=== PATIENT | male | born 1975 | race Hispanic/Latino ===

== ENCOUNTER 2018-04-01 21:17 | Observation (INO) | payer OTHER, SELFPAY ==
[2018-04-01 21:40] LABS: #Eosinphils 0.1 thou/uL (0.0-0.7); #Lymphocytes 1.8 thou/uL (1.20-3.40); #Monocytes 0.8 thou/uL (0.11-0.59); #Neutrophils 8.1 thou/uL (1.40-6.50); %Basophils 0.4 % (0.0-1.0); %Eosinophils 0.9 % (0.0-10.0); %Lymphocytes 16.9 % (21.0-51.0); %Monocytes 7.1 % (0.0-10.0); %Neutrophils 74.7 % (42.0-75.0); Hemoglobin 17.7 g/dL (14.0-18.0); Mean Corpuscular HGB CONC 33.3 g/dL (32.0-36.0); Mean Corpuscular Hemoglobin 30.7 pg (27.0-31.0); Mean Corpuscular Volume 92.1 fL (78.0-98.0); Mean Platelet Volume 8.6 fL (7.4-10.4); Platelet Count 311 thou/uL (130-400); RBC Distribution Width 11.8 % (11.5-14.5); Red Blood Cell (RBC) Count 5.76 mill/uL (4.70-6.10); White Blood Cell (WBC) Count 10.8 thou/uL (4.8-10.8)
--- NOTE | 2018-04-01 21:51 | RAD ---
ONE VIEW CHEST: 04/01/18 HISTORY: Pain. COMPARISON: None. FINDINGS: Normal cardiac silhouette. Pulmonary vessels and hilum are normal. Costophrenic angles are clear. No consolidation or mass. No pneumothorax or osseous abnormalities. IMPRESSION: No acute cardiopulmonary process. POS: [facility]
[2018-04-01 22:10] LABS: CKMB 2.1 ng/mL (0-6.6)
[2018-04-01 22:29] LABS: Troponin I Less than 0.010 ng/mL (< 0.028)
[2018-04-01 22:43] LABS: Albumin 4.1 g/dL (3.5-5.0)
[2018-04-01 22:44] LABS: Calcium 9.3 mg/dL (7.8-10.44); Chloride 106 mmol/L (98-107); Potassium 3.8 mmol/L (3.5-5.1); Sodium 136 mmol/L (136-145)
[2018-04-01 22:45] LABS: Globulin 4.3 g/dL (2.4-3.5); Glucose 153 mg/dL (70-105); Protein, Total 8.4 g/dL (6.0-8.3)
[2018-04-01 22:46] LABS: Anion Gap 17 mmol/L (10-20); Carbon Dioxide 17 mmol/L (22-29)
[2018-04-01 22:47] LABS: Bilirubin, Total 0.5 mg/dL (0.2-1.2)
[2018-04-01 22:48] LABS: Alkaline Phosphatase 85 U/L (40-150); Calc. Creatinine Clearance 0 mL/min (70-130); Estimated GFR-MDRD Greater than 90
[2018-04-01 22:49] LABS: BUN (Urea Nitrogen) 10 mg/dL (8.9-20.6)
[2018-04-01 22:50] LABS: AST (SGOT) 21 U/L (5-34)
[2018-04-01 22:51] LABS: ALT (SGPT) 23 U/L (8-55); CK (CPK) 121 U/L (30-200); Lipase 20 U/L (8-78)
--- NOTE | 2018-04-01 23:25 | ULT ---
GALLBLADDER ULTRASOUND: 04/01/18 HISTORY: Three days of epigastric pain. COMPARISON: None. TECHNIQUE: Utilizing multihertz transducer, sonographic imaging of the right upper quadrant is performed in the longitudinal and transverse plane. FINDINGS: The pancreas is obscured by bowel gas. There is heterogeneous echotexture of the hepatic parenchyma which may be due to hepatic steatosis. L imited evaluation for hepatic masses and intrahepatic biliary dilatation. Right hepatic lobe measures 15.5 cm. Within the lumen of the gallbladder, there is evidence of sludge. Gallbladder is distended, measuring 9.1 cm in maximum dimension. Gallbladder wall thickness is at the upper limits of normal. Trace amount of pericholecystic fluid. Negative Azevdeo's sign. Main portal vein is patent. Appropriate directional flow. Common bile duct is not adequately demonstrated. Anechoic focus in the right kidney measuring 1.5 cm compatible with a cyst. No hydronephrosis. Right kidney measures 5.2 x 4.6 x 10.3 cm. IMPRESSION: Distended gallbladder with evidence of sludge within the lumen of the gallbladder. No definite sonogr aphic evidence of cholecystitis. Gallbladder wall thickness is at the upper limits of normal. There i s a trace amount of pericholecystic fluid. Negative Azevedo's sign is reported. Further evaluation wit h HIDA scan is recommended. POS: [facility]
[2018-04-01] MEDS ORDERED: Piperacillin/Tazobactam 3.375 GM VIAL ONE (23:41)
[2018-04-02] MEDS ORDERED: Dextrose 5 %-0.45 % NaCl 1,000 ML IV SCH (02:00)
[2018-04-02] MEDS: Fentanyl 100 MCG/2 ML VIAL SLOW IVP PRN ×2 (02:20→07:00)
[2018-04-02 02:40] VITALS: BMI 28.3
[2018-04-02 05:57] LABS: #Eosinphils 0.1 thou/uL (0.0-0.7); #Lymphocytes 1.6 thou/uL (1.20-3.40); #Monocytes 1.1 thou/uL (0.11-0.59); #Neutrophils 9.8 thou/uL (1.40-6.50); %Basophils 0.4 % (0.0-1.0); %Eosinophils 0.6 % (0.0-10.0); %Lymphocytes 12.6 % (21.0-51.0); %Monocytes 8.8 % (0.0-10.0); %Neutrophils 77.6 % (42.0-75.0); Hemoglobin 16.5 g/dL (14.0-18.0); Mean Corpuscular HGB CONC 32.8 g/dL (32.0-36.0); Mean Corpuscular Hemoglobin 30.1 pg (27.0-31.0); Mean Platelet Volume 8.3 fL (7.4-10.4); Platelet Count 297 thou/uL (130-400); RBC Distribution Width 11.5 % (11.5-14.5); Red Blood Cell (RBC) Count 5.48 mill/uL (4.70-6.10); White Blood Cell (WBC) Count 12.6 thou/uL (4.8-10.8)
[2018-04-02] MEDS ORDERED: Piperacillin/Tazobactam 3.375 GM in Sodium Chloride 0.9% 100 ML IVPB SCH (06:00)
[2018-04-02 06:19] LABS: ALT (SGPT) 19 U/L (8-55); AST (SGOT) 19 U/L (5-34); Albumin 3.6 g/dL (3.5-5.0); Alkaline Phosphatase 83 U/L (40-150); Anion Gap 12 mmol/L (10-20); BUN (Urea Nitrogen) 7 mg/dL (8.9-20.6); Bilirubin, Total 0.5 mg/dL (0.2-1.2); Calc. Creatinine Clearance 136 mL/min (70-130); Calcium 8.6 mg/dL (7.8-10.44); Carbon Dioxide 21 mmol/L (22-29); Chloride 106 mmol/L (98-107); Estimated GFR-MDRD Greater than 90; Globulin 3.7 g/dL (2.4-3.5); Glucose 138 mg/dL (70-105); Potassium 3.6 mmol/L (3.5-5.1); Protein, Total 7.3 g/dL (6.0-8.3); Sodium 135 mmol/L (136-145)
--- NOTE | 2018-04-02 08:59 | HP ---
DATE OF SERVICE: 04/02/2018 CHIEF COMPLAINT: Right upper quadrant pain. HISTORY OF PRESENT ILLNESS: This is a 42-year-old male who presents with a history of severe right u pper quadrant pain after eating dinner last night. The pain is described as 8/10, sharp, radiates ar ound to his right back. No previous known history of gallstones, jaundice, pancreatitis, found to mazariegos ve gallstones with normal liver test. PAST MEDICAL HISTORY: He denies. PAST SURGICAL HISTORY: ORIF of ankle. MEDICINES TAKEN DAILY: None currently. ALLERGIES: No known drug allergies. SOCIAL HISTORY: Drinks occasionally. No smoking or other drugs. REVIEW OF SYSTEMS: Ten-system review of systems otherwise negative unless described above. PHYSICAL EXAMINATION: VITAL SIGNS: Blood pressure 151/77, pulse 84, respirations 18, and temperature 98.3. HEENT: Sclerae are anicteric. Oropharynx clear. NECK: No lymphadenopathy. CHEST: Clear. HEART: Regular rate and rhythm. ABDOMEN: Soft, tender right upper quadrant with localized guarding, no rebound, no abdominal hernias . EXTREMITIES: No ischemia or edema to extremities. LABORATORY DATA: White cell count is 12, hemoglobin 16, and platelet count is 297. Sodium 135, pota ssium 3.6, creatinine 0.79. Liver function tests normal. Abdominal ultrasound shows acute cholecyst itis. ASSESSMENT: Acute cholecystitis. PLAN: Laparoscopic cholecystectomy. Risks, benefits, alternatives discussed. He gives consent. We will do this today.
[2018-04-02] MEDS ORDERED: Bupivacaine/Epinephrine 0.25% 30 ML VIAL ONE (09:25)
[2018-04-02] MEDS ORDERED: Fentanyl 100 MCG/2 ML VIAL ONE (09:27)
[2018-04-02] MEDS ORDERED: Midazolam HCl 2 mg/2 ml Vial ONE (09:41)
[2018-04-02] MEDS ORDERED: Ketorolac Tromethamine 30 MG/ML VIAL ONE ×2 (09:42→12:04)
[2018-04-02] MEDS ORDERED: Famotidine/PF 20 mg/2ml Vial ONE (09:42)
[2018-04-02] MEDS ORDERED: Promethazine HCl 25 MG/ML VIAL SLOW IVP PRN (11:06)
[2018-04-02] MEDS ORDERED: Ondansetron HCl/PF 4 MG/2 ML Vial IVP PRN (11:06)
[2018-04-02] MEDS ORDERED: Promethazine HCl 25 MG/ML VIAL IM PRN ×2 (11:06→11:07)
[2018-04-02] MEDS ORDERED: hydrALAZINE 20 MG/ML VIAL SLOW IVP PRN (11:07)
[2018-04-02] MEDS ORDERED: Ondansetron PF 4 MG/2 ML Vial IVP PRN (11:07)
[2018-04-02] MEDS ORDERED: Calcium Carbonate 500 MG ChewTAB PO PRN (11:07)
[2018-04-02] MEDS ORDERED: HYDROcodone/Acetaminophen 10/325 mg Tablet PO PRN (11:07)
[2018-04-02] MEDS ORDERED: Dextrose 50% Abboject 50 ML SYRINGE SLOW IVP PRN (11:07)
[2018-04-02] MEDS ORDERED: Dextrose 5% in Water 1,000 ML IV PRN (11:07)
[2018-04-02] MEDS ORDERED: Ketorolac Tromethamine 30 MG/ML VIAL IVP PRN (11:07)
[2018-04-02] MEDS ORDERED: Sodium Chloride 0.9% 1,000 ML IV SCH (11:07)
[2018-04-02] MEDS ORDERED: Mag-Al 1200 mg/1200 mg/30 ML UDCUP PO PRN (11:07)
[2018-04-02] MEDS ORDERED: Morphine 2 MG/ML SYRINGE SLOW IVP PRN (11:07)
[2018-04-02] MEDS ORDERED: Ondansetron PF 4 MG/2 ML Vial ONE (12:04)
[2018-04-02] MEDS ORDERED: PROPOFOL 200 MG/20 ML VIAL ONE (12:04)
[2018-04-02] MEDS ORDERED: Dexamethasone 20 MG/5 ML VIAL ONE (12:04)
[2018-04-02] MEDS ORDERED: Metoprolol Tartrate 5 MG/5 ML VIAL ONE (12:04)
[2018-04-02] MEDS ORDERED: Glycopyrrolate 0.2 MG/ML 5 ML SYRINGE ONE (12:04)
[2018-04-02] MEDS ORDERED: Lidocaine 1% PF 5 ML VIAL ONE (12:04)
--- NOTE | 2018-04-02 12:47 | OP ---
DATE OF PROCEDURE: 04/02/2018 PREOPERATIVE DIAGNOSIS: Perirectal abscess. POSTOPERATIVE DIAGNOSIS: Perirectal abscess. PROCEDURES: 1. Incision and drainage of perirectal abscess. 2. Fistulotomy. SURGEON: Moises Doss M.D. ANESTHESIA: General. ESTIMATED BLOOD LOSS: Minimal. COMPLICATIONS: None. SPECIMEN: Cultures taken for anaerobes and aerobes. TECHNIQUE: Fistula in ano. TECHNIQUE: The patient was taken to the operating room and placed supine on the table. After genera l anesthetic was obtained, he was placed in lithotomy position. His perineum was prepped and draped in a sterile fashion. There was pus coming from a small outside opening. Fistula probe was used to pass this to the anterior midline. This is not transsphincteric and so the tissues on top were caute rized and opened. This exposes a larger deeper abscess that almost communicates to the perianal skin , lateral to the sphincter muscle an incision is made into a large pus pocket. Cultures were taken. The wound was irrigated, packed using iodoform gauze. The patient was en route to recovery in stabl e condition. All instrument counts, needle counts, lap counts were correct.
--- NOTE | 2018-04-02 13:11 | OP ---
DATE OF PROCEDURE: 04/02/2018 PREOPERATIVE DIAGNOSIS: Acute cholecystitis. POSTOPERATIVE DIAGNOSIS: Acute cholecystitis. PROCEDURE PERFORMED: Laparoscopic cholecystectomy. SURGEON: Moises Doss MD. ANESTHESIA: General. ESTIMATED BLOOD LOSS: Minimal. COMPLICATIONS: None. SPECIMEN: Gallbladder. FINDINGS: Cholecystitis. TECHNIQUE: The patient was taken to the operating room and placed supine on the table. After genera l anesthetic was obtained, the abdomen was prepped and draped in a sterile fashion. Curved incision was made below the umbilicus. Cautery was used to dissect down to and score the fascia. Abdominal c avity was entered bluntly using a Avis clamp. Holding stitch of PDS was placed on each side of the fascia. Noreen trocar was placed. High-flow pneumoperitoneum was obtained. An upper midline 5-mm p ort and 2 right upper quadrant 5-mm ports were placed under direct visualization. The gallbladder wa s extracted from the gallbladder fossa. The peritoneum was opened anteriorly and posteriorly. Criti javier view triangle was seen showing only the cystic duct and cystic artery branching from medial to la teral. Thee were no other branching structures. Two clips were placed proximal on the cystic duct a nd one distally. It was cut using laparoscopic scissors. Cystic artery was taken in the same way. Cautery was used to dissect the gallbladder out of the gallbladder fossa. Gallbladder placed in an E ndo catch bag and brought through the Ramos. There was some bleeding in the liver bed. This was co ntrolled using cautery and Milagros anti-bleeding starch. There was no ongoing bleeding. All port sit es were removed under direct visualization without bleeding. Pneumoperitoneum was let down. PDS was used to close the fascial defect below the umbilicus. All incisions were closed using 4-0 Monocryl and Dermabond. The patient was en route to recovery in stable condition. All instrument counts, nee dle counts, lap counts were correct.
[2018-04-02 15:50] VITALS: BP 133/89; TEMP 98
[2018-04-02] MEDS ORDERED: Famotidine/PF 20 mg/2ml Vial SLOW IVP SCH (21:00)
[2018-04-02] MEDS ORDERED: Famotidine 20 MG TAB PO SCH (21:00)
== END 2018-04-02 15:30 | disposition home or self-care (01) ==
LOC: ERS 21:17 → SURG A 23:28
PROVIDERS: ADMIT Surgery; ATTEND Surgery
PROC: 0FT44ZZ Resection of Gallbladder, Percutaneous Endoscopic Approach (ICD-10-PCS; principal; 2018-04-02)
PROC: 0H89XZZ Division of Perineum Skin, External Approach (ICD-10-PCS; 2018-04-02)
PROC: 0D9P3ZZ Drainage of Rectum, Percutaneous Approach (ICD-10-PCS; 2018-04-02)
DX: K81.2 Acute cholecystitis with chronic cholecystitis (principal); K61.1 Rectal abscess
CPT/HCPCS: 36415; 71045; 76705; 80053; 82553; 83690; 83880; 84484; 85025; 88304; 93005; 96361; 96365; 96366; 96375; 96376; G0378; J0131; J1100; J1885; J2001; J2250; J2405; J2543; J2704; J3010; J7050; S0028